=== PATIENT | male | born 1945 | race Caucasian/White ===

== ENCOUNTER → 2024-04-18 14:48 | Outpatient (REF) | payer MEDICARE, OTHER, SELFPAY | LOC: RCS 14:48 | PROVIDERS: ATTENDING PHYSICIAN Internal Medicine Cardiovascular Disease; FAMILY PHYSICIAN Family Medicine | DX: I34.0 Nonrheumatic mitral (valve) insufficiency (principal); I36.1 Nonrheumatic tricuspid (valve) insufficiency; I27.20 Pulmonary hypertension, unspecified | CPT/HCPCS: 93306 ==

== ENCOUNTER → 2024-05-09 10:16 | Outpatient (REF) | payer MEDICARE, OTHER, SELFPAY | LOC: SDSPAT 10:16 | PROVIDERS: ATTENDING PHYSICIAN Student in an Organized Health Care Education/Training Program; FAMILY PHYSICIAN Family Medicine; OTHER PHYSICIAN Internal Medicine Cardiovascular Disease | DX: I27.20 Pulmonary hypertension, unspecified (principal) | CPT/HCPCS: 93005 ==

== ENCOUNTER 2024-05-17 06:09 | Day surgery (SDC) | payer MEDICARE, OTHER, SELFPAY ==
[2024-05-09 10:36] VITALS: BMI 33.3
[2024-05-17] VITALS (12 sets, daily range): BP systolic 96–138; BP diastolic 60–76
[2024-05-17] MEDS: LOW STRENGTH ASPIRIN 81 MG PO (07:26)
--- NOTE | 2024-05-17 09:07 | ITS.CL.PN ---
[facility] [employer] [facility] - Procedure Note
Procedure
Procedure Note:
CARDIAC CATHETERIZATION REPORT
Date of Procedure: 05/17/2024
Referring: Dr. Brandin Freire MD
Indication: severe pulmonary hypertension, RV dysfunction
PROCEDURE(S)
1. right heart catheterization
2. left heart catheterization
3. coronary angiography
ACCESS
1. 6F right radial artery (closure: radial band)
2. 5F right antecubital vein (closure: manual hemostasis)
CATHETERS
1. 5F Thompson-Uday
2. 6F JR4
3. 6F JL4
MODERATE SEDATION: 30 minutes of moderate sedation was utilized. An independent medical office technology instructor was present to assist with and help manage the patient's level of consciousness and physiologic status.
HEMODYNAMIC DATA
LV 125/9 (EDP 23) mmHg
AO 120/66 (mean 87) mmHg
RA 19 mmHg
RV 48/12 (EDP 20) mmHg
PA 49/23 (mean 33) mmHg
PCWP 23 mmHg
SaO2 91.4%
SvO2 71.2%
Hb 14.3 g/dL
CO/CI 5.67/2.93 L/min/m2
SVR 959 dsc*-5
PVR 1.8 Wood units
CORONARY ANGIOGRAPHY
Dominance: Right
LM: Large, normal
LAD: Large vessel giving rise to a moderate caliber D1 and moderate caliber D2. There are trivial luminal irregularities only.
LCx: Moderate caliber vessel giving rise to a small, high-rising OM1/ramus and large OM2. There are trivial luminal irregularities only.
RCA: Large vessel giving rise to a medium caliber RPDA, medium caliber RPL1, and large RPL2. There are trivial luminal irregularities only.
RADIATION: dose 301.27 mGy; DAP 21.8178 Gy*cm2; fluoroscopy time 6.4 min
CONCLUSIONS
1. Coronary artery disease as described in a right dominant system with trivial luminal irregularities only.
2. Elevated biventricular filling pressures, moderate predominantly post-capillary pulmonary hypertension, and normal cardiac output.
3. No aortic stenosis on hemodynamic pullback.
RECOMMENDATIONS
1. Primary prevention of CAD.
2. Treatment for HFpEF and valvular cardiomyopathy.
3. Resume warfarin.
4. Start lasix 20 PO daily. Labs in 1 week.
5. On outpatient follow up, consider initiation of SGLT2i.
Copy to: Brandin Freire MD (director of cardiac rehabilitation); Cameron Desai MD (PCP)
Signed: Dashawn Graham MD, PhD
== END 2024-05-17 12:08 | disposition home or self-care (01) ==
LOC: CATH 06:09
PROVIDERS: ATTENDING PHYSICIAN Student in an Organized Health Care Education/Training Program; FAMILY PHYSICIAN Family Medicine; OTHER PHYSICIAN Internal Medicine Cardiovascular Disease
DX: I25.10 Atherosclerotic heart disease of native coronary artery without angina pectoris (principal); I27.29 Other secondary pulmonary hypertension; I50.32 Chronic diastolic (congestive) heart failure; I48.21 Permanent atrial fibrillation; I11.0 Hypertensive heart disease with heart failure; E78.5 Hyperlipidemia, unspecified; E66.9 Obesity, unspecified; N40.0 Benign prostatic hyperplasia without lower urinary tract symptoms; I08.1 Rheumatic disorders of both mitral and tricuspid valves; I10 Essential (primary) hypertension; Z79.899 Other long term (current) drug therapy; Z79.01 Long term (current) use of anticoagulants; Z88.6 Allergy status to analgesic agent
CPT/HCPCS: 99152; 99153; 93460; C1894; Q9967